=== PATIENT | male | born 1940 | race Caucasian/White ===

== ENCOUNTER 2019-02-22 17:40 | Inpatient (IN) | payer OTHER ==
[~2019-02-22] VITALS: Ht 188 cm; Wt 105.7 kg
[~2019-02-22 17:40] MED LIST: LOPRESSOR100 M1 PO; PRILOSEC10 MG PO; QUINAPRIL HCL40 MG PO; SINGULAIR 10 MG10 M1 PO; TRAMADOL 50 MG50 MG PO; VYTORIN 10-801 EACH PO
[2019-02-22 17:41] VITALS: BP 170/79
[2019-02-22 18:06] LABS: HEMATOCRIT 41.8 % (42.0-52.0); MCH 30.1 pg (26.0-34.0); MCHC 33.5 g/dL (28.0-37.0); MCV 89.8 fL (80.0-100.0); MPV 9.2 fl. (7.2-11.1); NUCLEATED RBCS 0 /100WBC; PLATELET COUNT* 146 thou/uL (150-400); RBC 4.66 mil/uL (4.50-6.00); RDW-CV 14.5 % (10.5-14.5); WBC 4.7 thou/uL (4.0-11.0)
[2019-02-22 18:20] LABS: ANION GAP 8 mmol/L (7-16); BUN 14 mg/dL (7-18); CALCIUM 8.8 mg/dL (8.5-10.1); CHLORIDE 106 mmol/L (98-107); CO2 26 mmol/L (21-32); CREATININE 1.2 mg/dL (0.6-1.3); GLUCOSE 99 mg/dL (70-99); POTASSIUM 3.8 mmol/L (3.5-5.1); SODIUM 140 mmol/L (136-145)
[2019-02-22 18:24] LABS: APTT 27.8 Seconds (25.0-31.3); PROTIME 10.2 Seconds (9.20-11.50)
[2019-02-22 18:27] LABS: ABSOLUTE EOSINOPHILS 0.3 thou/uL (0.0-0.7); ABSOLUTE LYMPHOCYTES 1.5 thou/uL (0.8-5.3); ABSOLUTE MONOCYTES 0.5 thou/uL (0.0-1.2); ABSOLUTE NEUTROPHILS 2.4 thou/uL (1.6-8.1); ATYPICAL LYMPHS 2 %; PLATELET ESTIMATE ADEQUATE
[2019-02-22 18:33] LABS: ALBUMIN 3.3 g/dL (3.4-5.0); ALKALINE PHOSPHATASE 85 U/L (46-116); CK-MB MASS 0.5 ng/mL (<0.5-3.6); LIPASE 111 U/L (73-393); MAGNESIUM 1.9 mg/dL (1.8-2.4); NT-PRO BRAIN NAT PEPTIDE 744 pg/mL (<300); SGOT 18 U/L (15-37); SGPT 26 U/L (30-65); TOTAL BILIRUBIN 0.3 mg/dL (<0.1-1.0); TOTAL PROTEIN 6.9 g/dL (6.4-8.2); TROPONIN-I LEVEL <0.06 ng/mL (<0.06)
[2019-02-22 19:07] VITALS: BP 191/84
[2019-02-22 21:19] VITALS: BP 191/84
[2019-02-22 21:45] VITALS: BP 170/64
[2019-02-23] VITALS (29 sets, daily range): BP systolic 100–212; BP diastolic 39–120
--- NOTE | 2019-02-23 06:56 | H ---
[address] [address] HISTORY AND PHYSICAL Name: ALEJANDRO FISHER SR Room: [place] [address] ADM IN M.R.#: [id number] Admission: 02/22/19 Attend Phys: Riccardo Barney Discharge: Date of : 44 Report #: [id number] THIS REPORT FOR: //name// CC: Susan Marmolejo DATE OF SERVICE: 02/22/2019 CHIEF COMPLAINT: Chest pain and shortness of breath. HISTORY OF PRESENT ILLNESS: The patient is a 78-year-old pleasant gentleman who has past history of CAD status post PCI and CABG in the past, who presented to us here for chest pain. The patient said he has been getting short of breath and having chest pain, pressure with exertion for the last month or so. It has been getting worse. He has seen his primary care physician. He did try to rest and does relieve it. Today he was carrying groceries and the pain was severe enough that he was getting diaphoretic and short of breath. He had some radiation to the left arm. EMS was called and he was given aspirin and nitro and by the time he got here, his symptoms have resolved. He does not have any chest pain currently. His blood pressure was elevated when he came in. PAST MEDICAL HISTORY: Includes CAD status post PCI and CABG. He also had carotid stenosis, status post CEA. He believes he has PVD and not sure if he had an angiogram, but he was told that they had to replace arteries in his legs. He might have a fem-pop, unsure as it has been years ago. He also has a history of hypertension, hyperlipidemia. Denies history of diabetes, COPD. He must quit smoking. FAMILY HISTORY: Hypertension, diabetes, CAD. SOCIAL HISTORY: The patient is and lives with the . Used to smoke, but quit in 1982. Also, used to drink, but quit years ago. No illicit drug use. ALLERGIES: MIDAZOLAM, BUPIVACAINE AND LIDOCAINE. MEDICATIONS: Include Vytorin 1080 daily, tramadol 50 mg p.r.n., metoprolol one every day, quinapril 40 mg daily. REVIEW OF SYSTEMS: The patient denies any fever, chills, cough or cold symptoms. Only complaint is that shortness of breath on exertion and also chest pain, especially on exertion. Denies any palpitation. No nausea, no vomiting or diarrhea. No burning, urgency and does have chronic back pain. No tingling or weakness. Denies any rash. A 12-point review of system unremarkable [place] [address] HISTORY AND PHYSICAL Name: ALEJANDRO FISHER SR Room: [address] IN M.R.#: [id number] Admission: 02/22/19 Attend Phys: Riccardo Barney Discharge: Date of : 42 Report #: [id number] PHYSICAL EXAMINATION: VITAL SIGNS: Temperature 36.2, heart rate 66, respiratory rate 16, blood pressure 191/84, 100% on 2 liters nasal cannula. GENERAL: The patient is alert. He is oriented x 3, not in acute respiratory distress. HEENT: Normocephalic, atraumatic. Nares patent. Clear pharynx. NECK: Supple. No lymphadenopathy. CARDIOVASCULAR: Normal rate, regular rhythm. No murmurs noted. RESPIRATORY: Clear to auscultation bilaterally, no wheeze, no crackles. GASTROINTESTINAL: Abdomen is soft, nontender, nondistended, positive bowel sounds. No organomegaly. GENITOURINARY: Deferred. MUSCULOSKELETAL: Fair strength. LABORATORY DATA: EKG showed sinus rhythm with incomplete heart block and PAC. IMAGING STUDIES: Chest x-ray done showed pulmonary venous congestion, findings suggestive of marked interstitial edema versus typical infection and chronic scarring. CT scan showed no filling defects in the main pulmonary artery, had a proximal branch that shows PE. There is peribronchial thickening, pleural parenchymal scarring in the left lung base. IMPRESSION: 1. The patient is a 78-year-old gentleman who presented to us here for shortness of breath on exertion and chest pain with exertion, likely secondary to stable angina. 2. Known hypertension 3. Known hyperlipidemia 4. History of coronary artery disease status post stent placement and open heart surgery, 5. Known carotid stenosis status post CEA. 6. Chronic back pain PLAN: The patient will be admitted. Cardiology will be consulted. Defer to them if he is going to have a cardiac catheterization tomorrow. We will keep him n.p.o. post-midnight. The patient requesting sleeping pills. We will start him on Ambien also given him Eola for chronic back pain. Discussed with the patient regarding code status. He wants to be tried to be resuscitated. He is full code, right now, but does not want to be prolonged resuscitation. His labs drawn and CBC is unremarkable. Coags is unremarkable. Chemistry is [address] [address] HISTORY AND PHYSICAL Name: ALEJANDRO FISHER Room: [address] IN M.R.#: [id number] Admission: 02/22/19 Attend Phys: Riccardo Barney Discharge: Date of : 44 Report #: [id number] unremarkable. Troponin is 0.06. BNP 744. Albumin is 2.3. We will also do an echocardiogram for this patient. <ELECTRONICALLY SIGNED> By: Susan Moncada MD 02/23/19 0656 [id number] Moncada MD /[facility]
--- NOTE | 2019-02-23 07:49 | NUR ---
PT CARE ASSUMED AT 1930. SAT MAINTAINED IN RA. CALL LIGHT WITHIN REACH AND BED IN LOW POSITION. C/O PAIN, MEDICATION GIVEN PER EMAR. ALERT AND ORIENTED X4. HOURLY ROUNDING DONE FOR PT SAFETY.
--- NOTE | 2019-02-23 08:00 | NUR ---
PT RECIEVED FROM ED. ALERT AND ORIENTED X4. CALL LIGHT WITHIN REACH AND BED IN LOW POSITION. PT IN RA. C/O PAIN, MEDICATION GIVEN PER EMAR. HOURLY ROUNDING DONE FOR PT SAFETY.
--- NOTE | 2019-02-23 08:39 | NUR ---
ASSUMED CARE OF PT AT 0730. PT RESTING IN BED. PT NPO AT THIS TIME FOR CARDIOLOGY CONSULT. PT DENIES ANY PAIN OR SHORTNESS OF BREATH AT THIS TIME. PT DENIES ANY CHEST PAIN. PT TRACING SR ON THE CERTIFIED PATHOLOGY ASSISTANT. +1 EDEMA NOTED TO BILATERAL LE'S. PT ON RA SAT 95%. PT UP AD KEENAN IN ROOM. PT GOAL FOR TODAY IS REMAIN FREE FROM CHEST PAIN, CARDIOLOGY CONSULT AND INCREASE ACTIVITY. AM ASSESSMENT CHARTED. MEDICATIONS PER NOV. PT REPOSITIONS SELF. HOURLY ROUNDING OBSERVED. BED IN LOW POSITION. CALL LIGHT WITHIN REACH. WILL CONTINUE PLAN OF CARE.
[2019-02-23 11:28] LABS: CHOLESTEROL 190 mg/dL (<200); HDL CHOLESTEROL 35 mg/dL (>40); LDL CHOLESTEROL 143 mg/dL (<100); TC:HDL 5.4 Ratio (Not establshd); TRIGLYCERIDE 62 mg/dL (<150); VLDL 12 mg/dL (<40)
[2019-02-23 11:33] LABS: SERUM ASSESSMENT Clear
--- NOTE | 2019-02-23 14:30 | NUR ---
PT TO TRANSFER TO ICU BED 1 POST CATH. REPORT CALLED TO DANNA SEGUNDO. BELONGINGS TRANSFERRED TO BED 1.
[2019-02-23 15:31] LABS: CK-MB MASS 0.5 ng/mL (<0.5-3.6); TROPONIN-I LEVEL 0.11 ng/mL (<0.06)
--- NOTE | 2019-02-23 17:30 | NUR ---
Right groin hematoma noted shortly after arterial sheath pull. Pressure held for 20 minutes. Groin has small quarter sized hematoma, no brusing noted at this time. Clean and dry dressing applied. Pt educated on post sheath pull instructions.
--- NOTE | 2019-02-23 19:00 | NUR ---
PATIENT RECEIVED FROM CATH AT 1400, VSS, SHEATH AT RT GROIN. SITE INTACT AND DRY. PAIN MGMT PER EMAR. TOLERATED HEART HEALTHY DIET.
[2019-02-24] VITALS (7 sets, daily range): BP systolic 130–163; BP diastolic 53–100
[2019-02-24 04:27] LABS: HEMATOCRIT 39.2 % (42.0-52.0); HEMOGLOBIN 13.4 gm/dL (14.0-18.0); MCH 30.7 pg (26.0-34.0); MCHC 34.2 g/dL (28.0-37.0); MCV 89.8 fL (80.0-100.0); MPV 9.5 fl. (7.2-11.1); RBC 4.37 mil/uL (4.50-6.00); RDW-CV 14.9 % (10.5-14.5); WBC 7.8 thou/uL (4.0-11.0)
[2019-02-24 05:09] LABS: ALKALINE PHOSPHATASE 78 U/L (46-116); ANION GAP 7 mmol/L (7-16); BUN 15 mg/dL (7-18); CALCIUM 8.8 mg/dL (8.5-10.1); CHLORIDE 103 mmol/L (98-107); CHOLESTEROL 180 mg/dL (<200); CK-MB MASS 12.2 ng/mL (<0.5-3.6); CO2 28 mmol/L (21-32); CREATININE 1.3 mg/dL (0.6-1.3); GLUCOSE 110 mg/dL (70-99); HDL CHOLESTEROL 32 mg/dL (>40); LDL CHOLESTEROL 126 mg/dL (<100); POTASSIUM 4.1 mmol/L (3.5-5.1); SGOT 28 U/L (15-37); SGPT 23 U/L (30-65); SODIUM 138 mmol/L (136-145); TC:HDL 5.6 Ratio (Not establshd); TOTAL BILIRUBIN 0.6 mg/dL (<0.1-1.0); TOTAL PROTEIN 6.6 g/dL (6.4-8.2); TRIGLYCERIDE 111 mg/dL (<150); VLDL 22 mg/dL (<40)
[2019-02-24 05:11] LABS: SERUM ASSESSMENT Clear
[2019-02-24 05:14] LABS: TROPONIN-I LEVEL 2.34 ng/mL (<0.06)
--- NOTE | 2019-02-24 06:26 | NUR ---
ASSESSMENT CHARTED. PATIENT UP AD KEENAN AT 2215 PER ORDERS POST CATH. PATIENT'S MAIN COMPLAINT WAS NAUSEA AND BACK PAIN. ADMINISTERED ZOFRAN Q4H TO KEEP NAUSEA MINIMAL. PATIENT VOMITED ONCE AT START OF SHIFT. CONTENTS BROWN AND THIN. ORAL MEDICATIONS HELD AT START OF SHIFT FOR THIS REASON. PATIENT SLEPT COMFORTABLY DURING MAJORITY OF SHIFT. PATIENT'S GRANDDAUGHTER CALLED TWICE FOR STATUS UPDATE.
[2019-02-24] MEDS ORDERED: LIPITOR 20 MG T20 M1 PO (07:39)
[2019-02-24] MEDS ORDERED: CLOPIDOGREL75 MG PO (07:39)
[2019-02-24] MEDS ORDERED: ASPIR 8181 MG PO (07:39)
--- NOTE | 2019-02-24 10:37 | CARD ---
[facility] [address] [place] [address] CARDIAC CATH REPORT Name: ALEJANDRO FISHER SR Room: [address] IN [facility]#: [id number] Admission: 02/22/19 Attend Phys: Riccardo Barney Discharge: Date of : 42 Report #: [id number] THIS REPORT FOR: //name// APPROVED REPORT Study performed: 02/23/2019 11:24:25 Patient Details Patient Status: In-Patient Room #: The patient is a 78 year-old male Event Personnel Alexsandra Yousif RN, Lily Mcconnell, Fabián ShiubRizwana Jin Street Contractor Procedures Performed Art Access - R femoral artery* Coronaries Angiography and Bypass Grafts 408358 CORCA Supravalvular Aortography Injection [id number] ISVA ELSIE Place w/wo Plasty Single CIRC [id number] , IVUS Indication Non-STEMI , Dyspnea, Chest pain Risk Factors Hypercholesterolemia, Coronary Artery DiseaseHypertension Previous Procedures/Diagnoses Previous CABGPrevious PCI Procedure Narrative The patient was brought urgently to the Cardiac Catheterization Laboratory and was prepped and draped in a sterile manner. The right femoral was infiltrated with subcutaneous anesthesia. A 6fr Ultimum Sheath sheath was inserted into the right femoral artery. Coronary angiography was performed using coronary diagnostic catheters. The right coronary system was accessed and visualized with a Diagnostic catheter. The left coronary system was accessed and visualized with a Diagnostic catheter. The patient tolerated the procedure well and there were no complications associated with the procedure. Sheath sutured into place to be removed later. Intraoperative Conscious Sedation Fentanyl 200 mcg No sedation given. [place] [address] CARDIAC CATH REPORT Name: ALEJANDRO FISHER SR Room: [address]#: [id number] Admission: 02/22/19 Attend Phys: Riccardo Barney Discharge: Date of : 42 Report #: [id number] Dose: 291740 mGy Contrast Type and Amount: Visipaque 230 ml Coronary Angiography The patient's coronary anatomy is left dominant. Diagnostic Cath Left Main There is a severe occlusion in the left main artery, 90% supplying a dominant left circumflex artery. LAD This vessel is occluded at the ostium. There is a FISHER graft with an end-to-side anastomosis to the mid LAD segment. There is a previously placed stent just after the anastomotic site with a severe restenosis, 70%. There is filling of the mid and distal LAD, diagonal artery and collateral filling of OM1 from the FISHER graft. Circumflex Dominant vessel with a severe ostial stenosis, 90%. OM1 Occluded at the ostium. The SVG to this vessel is occluded at the ostium. This vessel fills via collateral flow from the LAD. OM2 This is a patent vessel, with no flow-limiting lesions. Right Coronary This is a small, nondominant vessel with a total occlusion. Left Ventriculography An aortic root injection was performed, there is no evidence for any patent bypasses. Hemodynamics The aortic pressure is 194/91 mmHg with a mean of 128 mmHg. PCI Technique Lesion Anticoagulation was achieved with Angiomax. Patient was preloaded with Plavix PO 600 mg. Percutaneous coronary intervention was performed on the left main/ostial left circumflex artery segment. The lesion stenosis prior to intervention was 95% with CAMMIE 3 flow. A 6FR XB 3.5 100CM Guide Catheter was used to engage the ostium. A IG: BMW 190cm Interventional Guidewire was used to cross the lesion. BALLOON DILATION A Balloon catheter Trek RX 2.5 X 15 was inserted and inflated up to 14.00atm for 10seconds. Additional Inflation: 14.00atm for 8seconds. Additional Inflation: 18.00atm for 11seconds. [place] [address] CARDIAC CATH REPORT Name: ALEJANDRO FISHER SR Room: [address] IN [facility]#: [id number] Admission: 02/22/19 Attend Phys: Riccadro Barney Discharge: Date of : 42 Report #: [id number] A drug-eluting stent Ribera RX Stent 3.5X18mm was inserted and inflated up to 14.00atm for 16seconds. Additional Inflation: 14.00atm for 5seconds. At the distal edge of the 3.5 mm stent, there appears to be a focal dissection- this was covered with a Stent- Xience Preeti 3.25 x8 inflated up to 12 michael for 5 secs. Additional Inflation: 8 michael for 5 secs. Additional Inflation: 14 michael for 9 sec. POST STENT DEPLOYMENT BALLOON DILATION A Balloon catheter Iron Gaming RX3.50x15 was inserted and inflated up to 12.00atm for 5seconds. Additional Inflation: 8.00atm for 5seconds. Final angiography reveals 0 % stenosis with CAMMIE 3 flow. Conclusion 1. Successful insertion of a drug-eluting stent into the left main/ostial dominant left circumflex artery. 2. There is a patent FISHER graft to the mid LAD, filling the mid and distal LAD segments, diagonal artery and collateral flow to OM1. 3. At or just after the distal anastomosis from the FISHER to the LAD, there is a severe restenotic lesion. Recommend medical therapy. 4. Recommend dual antiplatelet therapy and aggressive risk factor management. Medications Administered Clopidogrel <ELECTRONICALLY SIGNED> By: Nav Wagoner MD 02/24/19 1037 1037 1037Nav Wagoner MD /INF
--- NOTE | 2019-02-24 12:21 | CON ---
[facility] [address] [place] [address] CONSULTATION Name: ALEJANDRO FISHER SR Room: [address] IN .R.#: [id number] Admission: 02/22/19 Attend Phys: Riccardo Barney Discharge: Date of : 42 Report #: [id number] THIS REPORT FOR: //name// CC: Susan Marmolejo MD DATE OF SERVICE: 02/23/2019 INDICATION: Non-ST elevation myocardial infarction. HISTORY OF PRESENT ILLNESS: The patient is a very pleasant 78-year-old gentleman with history of 3-vessel coronary artery bypass grafting reported in 1985. He reports percutaneous coronary intervention in 2001, complicated by hematoma. He has been relatively stable until the last several months when he has had exertional chest discomfort consistent with typical angina. Last night, he had sudden onset midsternal chest discomfort while at home. EMS was summoned to the house where he received sublingual nitroglycerin and IV fluids. He had relief in pain at that time. EKG in the Emergency Room shows sinus rhythm with diffuse ST segment depression consistent with ischemia. The patient has had mildly elevated troponins with the most current troponin being 0.37. At the time of interview, he is pain free. He did describe his pain as worse with activity, associated with shortness of breath and improved with nitroglycerin. PAST MEDICAL HISTORY: 1. Coronary artery disease. 2. Carotid vascular disease with previous carotid endarterectomy. 3. Peripheral vascular disease. 4. Hypertension. 5. Hyperlipidemia. 6. Bladder cancer. FAMILY HISTORY: Positive for hypertension, diabetes and coronary artery disease. SOCIAL HISTORY: The patient is . He quit smoking in 1982. He does not drink alcohol. ALLERGIES: MIDAZOLAM, BUPIVACAINE AND LIDOCAINE. HOME MEDICATIONS: Vytorin 10/80 one tablet daily, tramadol 50 mg p.r.n., metoprolol 100 mg daily, quinapril 40 mg daily. REVIEW OF SYSTEMS: Positive for generalized weakness, cough productive of clear sputum, occasional palpitations, chest discomfort as outlined above, dyspnea on exertion, history of bladder cancer remotely, seasonal allergies, [place] [address] CONSULTATION Name: CORRIEYONIALEJANDRO SR Room: [address]#: [id number] Admission: 02/22/19 Attend Phys: Riccardo Barney Discharge: Date of : 42 Report #: [id number] allergies as outlined above, arthritis. He wears glasses and dentures. Otherwise, 14-point review of systems was unremarkable. PHYSICAL EXAMINATION: VITAL SIGNS: Stable. Blood pressure 169/79, pulse 69 and regular. GENERAL: This is a pleasant gentleman who is in no distress. Mood and affect appropriate. HEENT: Extraocular muscles intact. Mucous membranes moist. NECK: Shows no jugular venous distention. I do not appreciate carotid bruit. CHEST: Reveals clear lung granado without wheezes or rales. CARDIOVASCULAR: Reveals a regular rhythm with grade 2/6 systolic ejection murmur. I do not appreciate gallop. ABDOMEN: Reveals normal bowel sounds. The abdomen is soft, nontender. EXTREMITIES: Shows no edema. Peripheral pulses palpable. SKIN: Dry. LABORATORY DATA: A 12-lead EKG shows sinus rhythm with ST segment depression in anterolateral leads. Labs are reviewed. Sodium 140, potassium 3.8, chloride 106, bicarbonate 26, BUN 14, creatinine 1.2, serum glucose 99. LFTs within normal limits. Albumin 3.3, total protein 6.9. Troponin initially less than 0.06, subsequently 0.25 and currently 0.37. NT-proBNP is 744. The lipid profile is pending. Coags within normal limits. Hemoglobin 14.0, hematocrit 41.8, platelet count 146. Chest x-ray suggests pulmonary vascular congestion. IMPRESSION AND RECOMMENDATIONS: 1. Non-ST elevation myocardial infarction. The patient was placed on heparin drip and nitro paste. PLAN: 1. Cardiac catheterization today to further define anatomy and possible intervention. Continue daily aspirin. 2. Possible acute on chronic heart failure. We will further define left ventricular function with catheterization. At this point, the patient is being gently hydrated prior to catheterization. 3. Cardiac murmur consistent with aortic valvular [place] [address] CONSULTATION Name: ALEJANDRO FISHER SR Room: [address] IN [facility]#: [id number] Admission: 02/22/19 Attend Phys: Riccardo Barney Discharge: Date of : 42 Report #: [id number] We will obtain echocardiogram either during hospitalization or as an outpatient. 4. Hyperlipidemia. The patient is on Vytorin . We will repeat fasting lipid profile at this time. 5. Hypertension. Blood pressure moderately elevated at this time. We will make adjustments to antihypertensive regimen while in hospital if required. 6. Peripheral vascular disease, presently stable. He is not complaining of claudication. 7. History of carotid vascular disease. Last workup was remotely. He is not having any symptoms to suggest transient ischemic attack or stroke. He should probably have a repeat carotid Doppler as an outpatient. <ELECTRONICALLY SIGNED> By: Trav Light MD, FACC 02/24/19 1221 1025 [id number] Light MD, FACC /nt
--- NOTE | 2019-02-24 13:34 | NUR ---
PATIENT ALERT AND ORIENTED X4. VSS. COMPLAINT OF HEADACHE, MANAGED BY HYDROCODONE. TOLERATED DIET. UO 200 MLS. DISCHARGE EDUCATION PROVIDED.
--- NOTE | 2019-02-24 16:53 | 2DMMODE ---
[place] [address] 2 D/M-MODE ECHOCARDIOGRAM Name: ALEJANDRO FISHER SR Room: [address]#: [id number] Admission: 02/22/19 Attend Phys: Susan Moncada Discharge: 02/24/19 Date of : 44 Date of Service: 02/24/19 1653 Report #: [id number] THIS REPORT FOR: //name// APPROVED REPORT Study performed: 02/24/2019 13:55:40 EXAM: Comprehensive 2D, Doppler, and color-flow Echocardiogram Patient Location: In-Patient Room #: 001 Status: routine BSA: 2.32 HR: 64 bpm BP: 130/69 mmHg Rhythm: NSR Other Information Study Quality: Good Indications Acute [place] 2D Dimensions IVSd: 12.10 (7-11mm) LVOT Diam: 21.52 (18-24mm) LVDd: 49.27 mm PWd: 11.04 (7-11mm) Ascending Ao: 30.65 (22-36mm) LVDs: 32.82 (25-40mm) Aortic Root: 32.71 mm Volumes Left Atrial Volume (Systole) LA ESV Index: 38.00 mL/m2 Aortic Valve AoV Peak Dinh.: 2.38 m/s AO Peak Gr.: 22.72 mmHg LVOT Max P.33 mmHg AO Mean Gr.: 12.93 mmHg LVOT Mean P.56 mmHg LVOT Max V: 0.91 m/s AO V2 VTI: 50.88 cm LVOT Mean V: 0.57 m/s NITESH (VTI): 1.44 cm2 LVOT V1 VTI: 20.12 cm AI Cedar: 2.68 m/s2 AI PHT: 365.00 ms Mitral Valve E/A Ratio: 1.83 [place] [address] 2 D/M-MODE ECHOCARDIOGRAM Name: ALEJANDRO FISHER SR Room: [address]#: [id number] Admission: 02/22/19 Attend Phys: Susan Moncada Discharge: 02/24/19 Date of : 44 Date of Service: 02/24/19 1653 Report #: [id number] MV Decel. Time: 174.04 ms MV E Max Dinh.: 1.03 m/s MV PHT: 50.47 ms MVA (PHT): 4.36 cm2 TDI E/Lateral E': 9.36 E/Medial E': 7.92 Medial E' Dinh.: 0.13 m/s Lateral E' Dinh.: 0.11 m/s Pulmonary Valve PV Peak Dinh.: 0.88 m/s PV Peak Gr.: 3.08 mmHg Tricuspid Valve RAP Estimate: 5.00 mmHg TR Peak Gr.: 30.79 mmHg RVSP: 35.00 mmHg PA Pressure: 35.00 mmHg Left Ventricle The left ventricle is normal size. There is normal LV segmental wall motion. There is normal left ventricular wall thickness. Left ventricular systolic function is normal. LVEF is 55-60%. Transmitral Doppler flow pattern suggests restrictive physiology. Right Ventricle Right ventricle is dilated. The right ventricular systolic function is normal. Atria Left atrium is mildly dilated. Right atrium is dilated. Aortic Valve Moderate aortic valve sclerosis. Moderate aortic regurgitation. Moderate aortic stenosis. Mitral Valve There is mitral annular calcification. Mild mitral regurgitation. No evidence of mitral valve stenosis. Tricuspid Valve The tricuspid valve is normal in structure. Mild tricuspid regurgitation. Mild pulmonary hypertension. Pulmonic Valve The pulmonary valve is normal in structure. There is no pulmonic [place] [address] 2 D/M-MODE ECHOCARDIOGRAM Name: ALEJANDRO FISHER Andrew VICENTE Room: [address]#: [id number] Admission: 02/22/19 Attend Phys: Susan Moncada Discharge: 02/24/19 Date of : 44 Date of Service: 02/24/19 1653 Report #: [id number] Great Vessels The aortic root is normal in size. IVC is not well visualized. Pericardium There is no pericardial effusion. <Conclusion> The left ventricle is normal size. There is normal left ventricular wall thickness. Left ventricular systolic function is normal. LVEF is 55-60%. Transmitral Doppler flow pattern suggests restrictive physiology. Right ventricle is dilated. Left atrium is mildly dilated. Right atrium is dilated. Moderate aortic valve sclerosis. Moderate aortic stenosis. Mild mitral regurgitation. Mild tricuspid regurgitation. Mild pulmonary hypertension. <ELECTRONICALLY SIGNED> By: Trav Light MD, FACC 02/24/191652 52 52 Trav Light MD, FACC /INF
--- NOTE | 2019-02-26 10:31 | EKG ---
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 : 1940 Requested By: Nav Wagoner Order Number: [id number] Reading MD: Coleman Kinney Measurements Intervals [place] Rate: 73 P: 51 OK: 164 QRS: 20 QRSD: 95 T: -44 QT: 388 QTc: 428 Interpretive Statements Sinus rhythm Probable left ventricular hypertrophy Borderline T abnormalities, diffuse leads No previous ECG available for comparison Electronically Signed On 02-26-2019 10:31:44 CDT by Coleman Kinney [email or web address] <ELECTRONICALLY SIGNED> By: Coleman Kinney MD, [facility] 02/26/19 1031 0259 0259 Coleman Kinney MD, [facility] /EPI
--- NOTE | 2019-02-26 10:31 | EKG ---
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: : 1940 Requested By: Nav Wagoner Order Number: [id number] Reading MD: Coleman Kinney Measurements Intervals [place] Rate: 68 P: 60 ME: 169 QRS: 24 QRSD: 95 T: -9 QT: 408 QTc: 434 Interpretive Statements Sinus rhythm Atrial premature complex Borderline T abnormalities, diffuse leads Baseline wander in lead(s) III,aVL No previous ECG available for comparison Electronically Signed On 02-26-2019 10:31:23 CDT by Coleman Kinney [email or web address] <ELECTRONICALLY SIGNED> By: Coleman Kinney MD, [facility] 02/26/19 1031 1431 1431 Coleman Kinney MD, [facility] /EPI
--- NOTE | 2019-02-26 12:48 | EKG ---
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: Layla CARTWRIGHT : 1940 Requested By: Jose Alfredo Bowers Order Number: [id number] MD: Tato Menchaca Measurements Intervals [place] Rate: 87 P: 35 [place]: 158 QRS: 27 QRSD: 115 T: 21 QT: 390 QTc: 470 Interpretive Statements Sinus rhythm Atrial premature complex Incomplete right bundle branch block Probable LVH with secondary repol abnrm Baseline wander in lead(s) I,III,aVL No previous ECG available for comparison Electronically Signed On 02-26-2019 12:48:13 CDT by Tato Menchaca [email or web address] <ELECTRONICALLY SIGNED> By: Tato Menchaca MD, FAC 02/26/19 1248 1741 1741 Tato Menchaca MD, FAC /EPI
== END 2019-02-24 15:24 | disposition home or self-care (01) | DRG 246 ==
LOC: M.ERS 17:40 → M.TBA-ER 18:35 → M.2W 18:35 → M.ICU 02-23 14:14
PROVIDERS: Family Medicine; Internal Medicine Cardiovascular Disease; ADMIT Internal Medicine
DX: I21.4 Non-ST elevation (NSTEMI) myocardial infarction (principal); I50.33 Acute on chronic diastolic (congestive) heart failure; T82.855A Stenosis of coronary artery stent, initial encounter; I25.119 Atherosclerotic heart disease of native coronary artery with unspecified angina pectoris; I73.9 Peripheral vascular disease, unspecified; E78.5 Hyperlipidemia, unspecified; G89.29 Other chronic pain; I08.0 Rheumatic disorders of both mitral and aortic valves; Y83.8 Other surgical procedures as the cause of abnormal reaction of the patient, or of later complication, without mention of misadventure at the time of the procedure; Z79.899 Other long term (current) drug therapy; Z88.8 Allergy status to other drugs, medicaments and biological substances; Z95.1 Presence of aortocoronary bypass graft; Z95.5 Presence of coronary angioplasty implant and graft; Z85.51 Personal history of malignant neoplasm of bladder; Z83.3 Family history of diabetes mellitus; Z82.49 Family history of ischemic heart disease and other diseases of the circulatory system; Z79.84 Long term (current) use of oral hypoglycemic drugs; Z87.891 Personal history of nicotine dependence; Y92.89 Other specified places as the place of occurrence of the external cause

== ENCOUNTER 2020-04-18 19:59 | Inpatient (IN) | payer OTHER ==
[~2020-04-18] VITALS: Ht 188 cm; Wt 90.4 kg
[~2020-04-18 19:59] MED LIST changes: +ASPIR 8181 MG PO; +CLOPIDOGREL75 MG PO; +LIPITOR 20 MG T20 M1 PO
[2020-04-18 20:06] VITALS: BP 205/74
[2020-04-18 20:26] LABS: ABSOLUTE EOSINOPHILS 0.4 thou/uL (0.0-0.7); ABSOLUTE LYMPHOCYTES 1.4 thou/uL (0.8-5.3); ABSOLUTE MONOCYTES 0.5 thou/uL (0.0-1.2); BASOPHILS 0.9 %; EOSINOPHILS 7.3 %; HEMATOCRIT 42.6 % (42.0-52.0); HEMOGLOBIN 14.5 gm/dL (14.0-18.0); LYMPHOCYTES 25.9 %; MCH 31.1 pg (26.0-34.0); MCV 91.3 fL (80.0-100.0); MONOCYTES 10.2 %; MPV 9.7 fl. (7.2-11.1); NUCLEATED RBCS 0 /100WBC; PLATELET COUNT* 158 thou/uL (150-400); POLYS 55.7 %; RBC 4.67 mil/uL (4.50-6.00); RDW-CV 15.5 % (10.5-14.5); WBC 5.3 thou/uL (4.0-11.0)
[2020-04-18 20:32] LABS: CALCIUM 8.8 mg/dL (8.5-10.1); CREATININE 1.6 mg/dL (0.6-1.3); POTASSIUM 4.4 mmol/L (3.5-5.1)
[2020-04-18 20:34] LABS: PROTIME 10.3 Seconds (9.20-11.50)
[2020-04-18 20:43] LABS: ALBUMIN 3.4 g/dL (3.4-5.0); MAGNESIUM 2.1 mg/dL (1.8-2.4); TOTAL BILIRUBIN 0.3 mg/dL (<0.1-1.0); TOTAL PROTEIN 7.2 g/dL (6.4-8.2)
[2020-04-18 21:39] LABS: URINE BILIRUBIN NEGATIVE (Negative); URINE BLOOD NEGATIVE (Negative); URINE CLARITY CLEAR; URINE COLOR YELLOW; URINE GLUCOSE-RANDOM NEGATIVE (Negative); URINE KETONES NEGATIVE (Negative); URINE LEUKOCYTES-REFLEX NEGATIVE (Negative); URINE NITRITE-REFLEX NEGATIVE (Negative); URINE PROTEIN NEGATIVE (Negative); URINE UROBILINOGEN 0.2 E.U./dl (0.2-1.0)
[2020-04-19] VITALS (7 sets, daily range): BP systolic 140–158; BP diastolic 49–63
[2020-04-19] MEDS ORDERED: LORCET 5-325 M1 EACH PO (03:22)
[2020-04-19] MEDS ORDERED: VISTARIL 25 MG25 M1 PO (03:25)
[2020-04-19] MEDS ORDERED: DULCOLAX STOOL100 M1 PO (03:36)
[2020-04-19] MEDS ORDERED: DULCOLAX5 MG PO (03:38)
--- NOTE | 2020-04-19 05:01 | NUR ---
RECEIVED PT FROM ED AT APPROX 0100 PER CART ACCOMPANIED BY ESPERANZA CLAY. PT IS AWAKE AND ORIENTED X4. PT IS TRACING SB ON THE CONVEYOR BELT OPERATOR. PT DENIES CHEST PAIN AND DISCOMFORT. PT IS ORIENTED ON THE ROOM SET UP AND ON THE USE OF CALL LIGHT. NO ACUTE CHANGES THROUGHOUT THIS SHIFT. CALL LIGHT WITHIN REACH. HOURLY ROUNDING DONE FOR PT SAFETY.
[2020-04-19 12:09] LABS: CHOLESTEROL 153 mg/dL (<200); HDL CHOLESTEROL 31 mg/dL (>40); LDL CHOLESTEROL 108 mg/dL (<100); SERUM ASSESSMENT Clear; TC:HDL 4.9 Ratio (Not establshd); TRIGLYCERIDE 73 mg/dL (<150); VLDL 15 mg/dL (<40)
--- NOTE | 2020-04-19 12:35 | EKG ---
[place] [address] ELECTROCARDIOGRAM REPORT Name: ALEJANDRO FISHER Room: [address]R.#: [id number] Admission: 04/18/20 Attend Phys: Josiah Linda, Discharge: Date of : 44 Date of Service: 04/18/202002 Report #: [id number] THIS REPORT FOR: //name// [facility] ED Test Date: 2020-04-18 Test Time: 20:03:56 Pat Name: ALEJANDRO FISHER Department: Room: [facility] Gender: M Dude Ranch Manager: NADIA : 1940 Requested By: Namita Padilla Order Number: [id number] MD: Nj Thacker Measurements Intervals [place] Rate: 78 P: 41 [place]: 167 QRS: 28 QRSD: 87 T: 1 QT: 393 QTc: 448 Interpretive Statements Sinus rhythm Supraventricular bigeminy Borderline repolarization abnormality Compared to ECG 02/24/2019 02:59:17 Atrial premature complex(es) now present T-wave abnormality no longer present Electronically Signed On 04-19-2020 12:35:20 CDT by Nj Thacker [email or web address] <ELECTRONICALLY SIGNED> By: Clay Thacker MD, FACC 04/19/20 1235 02 02 Clay Thacker MD, FAC /EPI
--- NOTE | 2020-04-19 17:16 | NUR ---
ASSUMED CARE OF PATIENT THIS MORNING FROM NIGHT NURSE. PT HAS CO OF PAIN WELL CONTROLLED WITH HER NORMAL HOME MEDICATIONS. HE WAS EDUCATED ON FALL SAFETY, POC AND DISEASE PROCESS. WILL CONTINUE TO MONITOR.
[2020-04-20] VITALS (18 sets, daily range): BP systolic 110–205; BP diastolic 45–120
--- NOTE | 2020-04-20 05:15 | NUR ---
ASSUMED PT CARE AT APPROX 1930. PT IS AWAKE AND ORIENTED X4. 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 PT DENIES CHEST PAIN/DISCOMFORT. PT IS REMINDED TO HAVE NOTHING BY MOUTH AFTER MIDNIGHT FOR A CARDIAC CATH IN AM. NO ACUTE CHANGES OVERNIGHT. CALL LIGHT WITHIN REACH. HOURLY ROUNDING DONE FOR PT SAFETY.
--- NOTE | 2020-04-20 08:10 | NUR ---
ASSUMED CARE OF PATIENT THIS MORNING FROM NIGHT NURSE. PT IS READY TO GO AND HAVE HIS CARDIAC CATH. WILL CONTINUE TO MONITOR.
--- NOTE | 2020-04-20 11:17 | EKG ---
[place] [address] ELECTROCARDIOGRAM REPORT Name: ALEJANDRO FISHER SR Room: [address]R.#: [id number] Admission: 04/18/20 Attend Phys: Josiah Linda, Discharge: Date of : 44 Date of Service: 04/19/20 0936 Report #: [id number] THIS REPORT FOR: //name// [facility] Test Date: 2020-04-19 Test Time: 09:36:40 Pat Name: ALEJANDRO FISHER Department: Room: [place] [address] Gender: M Basting Marker: YANIQUE : 1940 Requested By: Clay Thacker Order Number: [id number] Fox MD: Tato Menchaca Measurements Intervals [place] Rate: 55 P: 11 [place]: 179 QRS: 9 QRSD: 90 T: 2 QT: 422 QTc: 404 Interpretive Statements Sinus bradycardia Atrial premature complex Borderline T abnormalities, inferior leads Compared to ECG 04/18/2020 20:03:56 rate has slowed Electronically Signed On 04-20-2020 11:16:52 CDT by Tato Menchaca [email or web address] <ELECTRONICALLY SIGNED> By: Tato Menchaca MD, [facility] 04/20/20 1116 0936 0936 Tato Menchaca MD, [facility] /EPI
[2020-04-20 11:48] LABS: CALCIUM 8.7 mg/dL (8.5-10.1); CREATININE 1.5 mg/dL (0.6-1.3); POTASSIUM 4.7 mmol/L (3.5-5.1)
--- NOTE | 2020-04-20 14:21 | EKG ---
[place] [address] ELECTROCARDIOGRAM REPORT Name: ALEJANDRO FISHER SR Room: [address]R.#: [id number] Admission: 04/18/20 Attend Phys: Josiah Linda, Discharge: Date of : 44 Date of Service: 04/20/20 1309 Report #: [id number] THIS REPORT FOR: //name// [facility] Test Date: 2020-04-20 Test Time: 13:09:13 Pat Name: ALEJANDRO FISHER Department: Room: [place] [address] Gender: M Investigation Lieutenant: TEJA : 1940 Requested By: Tato Menchaca Order Number: [id number] Reading MD: Tato Menchaca Measurements Intervals [place] Rate: 80 P: 62 [place]: 174 QRS: 37 QRSD: 79 T: 49 QT: 390 QTc: 450 Interpretive Statements Sinus rhythm ST elevation, consider anterior injury Compared to ECG 04/19/2020 09:36:40 ST (T wave) deviation now present Sinus bradycardia no longer present Atrial premature complex(es) no longer present T-wave abnormality no longer present Electronically Signed On 04-20-2020 14:21:12 CDT by Tato Menchaca [email or web address] <ELECTRONICALLY SIGNED> By: Tato Menchaca MD, [facility] 04/20/20 1421 1309 1309 Tato Menchaca MD, [facility] /EPI
--- NOTE | 2020-04-20 16:33 | NUR ---
Pt lives at home with spouse. Pt has supportive children. Pt nurse explained that pt would most likely not be accepting or compliant of HH services. SW to follow to assist with safe dc planning if needs arise.
--- NOTE | 2020-04-20 17:09 | CARD ---
[address] [address] CARDIAC CATH REPORT Name: ALEJANDRO FISHER SR Room: [address] [place] Diana#: [id number] Admission: 04/18/20 Attend Phys: Josiah Linda MD Discharge: Date of : 44 Report #: [id number] THIS REPORT FOR: //name// cc: Aaron Marmolejo MD, Thomas MD ~ APPROVED REPORT Study performed: 04/20/2020 08:30:12 Patient Details Patient Status: In-Patient Room #: Count includes the [facility] The patient is a 79 year-old male Event Personnel Jose Escudero RTR Monitor, Alexsandra Yousif RN, Irina Sam RTR FloresubNikolai David Radiology Interventional Physician Procedures Performed Left Heart Cath Coronaries, Bypass Grafts [id number] LHCCORCABG ELSIE Place w/wo Plasty Single LAD [id number] Indication Abnormal ECG, Chest pain Risk Factors Arterial Hypertension, Hypercholesterolemia, Coronary Artery Disease Previous Procedures/Diagnoses Previous CABGPrevious PCI, Previous Vascular Surgery Admission/Lab Medications/Medications given during procedure Glycoprotein IllbIlla Inhibitors, Heparin Unfract., Fentanyl IV 25 mcg, Lidocaine Subcut 20 ml, Benadryl IV 50 mg, Solumedrol IV 100 mg, Heparin IV 7000 units, Aggrastat IV 10 mcg per min, Nitroglycerin IC 200 mcg, Plavix PO 600 mg Procedure Narrative The patient was brought electively to the Cardiac Catheterization Laboratory and was prepped and draped in a sterile manner. The left femoral was infiltrated with 1% Lidocaine subcutaneous anesthesia. A Lansford 6 FR sheath was inserted into the left femoral artery. Coronary angiography was performed using coronary diagnostic catheters. The right coronary system [place] [address] CARDIAC CATH REPORT Name: ALEJANDRO FISHER SR Room: [address]#: [id number] Admission: 04/18/20 Attend Phys: Josiah Linda MD Discharge: Date of : 44 Report #: [id number] a Diagnostic JR4 6 Fr catheter. The left coronary system was accessed and visualized with a Diagnostic JL4 6Fr catheter. The left ventricle was accessed and visualized with a Diagnostic Pigtail 6Fr catheter. Left ventricular/Aortic Valve gradient assessed via catheter pullback. Left ventriculogram was performed in QUIÑONES projection. The patient tolerated the procedure well and there were no complications associated with the procedure. There was no hematoma. The sheath was sutured in place at the end of the procedure. The plan was to manual remove the sheath in 4 hours and achieve hemostasis by applying pressure. Intraoperative Conscious Sedation Sedation start time: 925 Case end Time: 104 Fentanyl 125 mcg Fluoro Time: 13.2 minutes Dose: DAP 607545 cGycm2 1712.27 mGy Contrast Type and Amount: Visipaque 220 ml Coronary Angiography The patient's coronary anatomy is left dominant. [place] Artery Percent Stenosis Grafts (Complete if Previous CABG=Yes: Percent Stenosis) The FISHER graft was visualized with a 6 fr FISHER catheter. There was no stenosis noted in the FISHER graft but there was a stent in the mid lad after the insertion of the graft with a 90% distal edge restenosis, and 2 sequential 90% stenosis in the mid lad distal to the stent. The apical lad was a small vessel and had a 90% stenosis at the apex before the lad wrapped around the apex. The previous vein grafts had been demonstrated on previous catheterizations to be chronically occluded. Diagnostic Cath Left Main stent noted with a 30% ostial stenosis noted LAD 100% chronically occluded Circumflex Stent noted in the proximal circumflex extending from the left main artery and had 0% stenosis. There was a 70% stenosis in the mid circumflex artery after the takeoff of a marginal artery. Right Coronary chronically occluded proximally Left Ventriculography The left ventricular ejection fraction is estimated to be 45-50%. Left ventricular wall motion abnormalities are present. There is no mitral insufficiency. [place] [address] CARDIAC CATH REPORT Name: ALEJANDRO FISHER SR Room: [address] [place] M.Su#: [id number] Admission: 04/18/20 Attend Phys: Josiah Linda MD Discharge: Date of : 44 Report #: [id number] Hemodynamics The aortic pressure is 190/85 mmHg with a mean of 126 mmHg. The left ventricular pressure is 188/20 mmHg with a mean of mmHg. The left ventricular end diastolic pressure is 35 mmHg. There was no gradient across the aortic valve upon pullback. Pullback from the left ventricle to the aorta revealed no gradient across the aortic valve. PCI Technique Lesion Anticoagulation was achieved with Heparin. bolus of iv aggrastat given Percutaneous coronary intervention was performed on the mid left anterior descending artery segment. The lesion stenosis prior to intervention was 90% with CAMMIE 3 flow. A 6F IM 90CM Guide Catheter was used to engage the FISHER graft ostium. A IG: BMW 190cm Interventional Guidewire was used to cross the lesion. BALLOON DILATION A Balloon catheter 2/0 x 12 mm was inserted and inflated up to 8.00atm for 15seconds. Repeat angiography revealed the following post-dilatation results: 40% stenosis. Additional Inflation: 8.00atm for 12seconds. Additional Inflation: 8.00atm for 9seconds. STENT DEPLOYMENT A drug-eluting stent Shaq RX Stent 2.0X30mm was inserted and inflated up to 8.00atm for 13seconds. Repeat angiography revealed the following post-stent deployment results: 0% stenosis. Additional Inflation: 9.00atm for 14seconds. Additional Inflation: 13.00atm for 16seconds. A second stent was placed proximal to the first stent so that the was minimal overlap between the 2 stents and inflated to 12 michael for 10 seconds to cover the long area of significant stenosis in the lad. Final angiography reveals 0 % stenosis with CAMMIE 3 flow. Conclusion 1. 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 patent stent that started in the left main artery and extended into the proximal portion of the dominant circumflex artery with 0% restenosis. 3. previously demonstrated chronic occlusion of all previous SVG's 4. patent FISHER graft to the mid lad, with a stent in the mid lad after the insertion of the FISHER graft that had a 90% distal edge restenosis. 2 sequential 90% stenosis were noted in the mid lad [address] [address] CARDIAC CATH REPORT Name: ALEJANDRO FISHER SR Room: [address] [place] TrianaLencho#: [id number] Admission: 04/18/20 Attend Phys: Josiah Linda MD Discharge: Date of : 44 Report #: [id number] beyond the stent. 5. LVEF 45-50% 6. 2 drug eluting stents were successful delivered to the mid lad through the FISHER graft with 0% residual stenosis Recommendations Cardiac Rehabilitation Referral Aggressive Medical Therapy Medications Administered Clopidogrel <ELECTRONICALLY SIGNED> By: Tato Menchaca MD, FACC 04/20/20 1709 08 08Tato Menchaca MD, FACC /INF
[2020-04-20 22:16] LABS: URINE BILIRUBIN NEGATIVE (Negative); URINE BLOOD 3+ (Negative); URINE CLARITY CLEAR; URINE COLOR YELLOW; URINE GLUCOSE-RANDOM NEGATIVE (Negative); URINE KETONES NEGATIVE (Negative); URINE LEUKOCYTES-REFLEX NEGATIVE (Negative); URINE NITRITE-REFLEX NEGATIVE (Negative); URINE PROTEIN NEGATIVE (Negative); URINE SPECIFIC GRAVITY <= 1.005 (1.005-1.030); URINE UROBILINOGEN 0.2 E.U./dl (0.2-1.0)
[2020-04-20 22:25] LABS: BACTERIA-REFLEX >30 Many /HPF (None Seen); SQUAMOUS 0-3 Few /LPF (0-3); URINE RBC 3-10 Few /HPF (0-2)
[2020-04-20 22:26] LABS: CASTS None Seen /LPF (None Seen); CRYSTALS None Seen /LPF (None Seen)
[2020-04-21] VITALS (12 sets, daily range): BP systolic 120–144; BP diastolic 44–70
--- NOTE | 2020-04-21 05:22 | NUR ---
PT IS ABLE TO COMMUNICATE HIS NEEDS TO STAFF EFFECTIVELY. CURRENT PAIN MEDICATION REGIMEN HAS BEEN ADEQUATE FOR CONTROLLING HIS PAIN UP TO THIS TIME. LEFT GROIN CATH SITE DRESSING IS C/D/I AT THIS TIME. PT REPORTS SOME BLOOD IN URINE; CONCERNED ABOUT INFECTION; UA SENT. POSSIBLE DISCHARGE LATER TODAY.
[2020-04-21 05:56] LABS: HEMATOCRIT 40.2 % (42.0-52.0); HEMOGLOBIN 13.6 gm/dL (14.0-18.0); MCH 30.8 pg (26.0-34.0); MCHC 33.8 g/dL (28.0-37.0); MCV 91.1 fL (80.0-100.0); MPV 10.3 fl. (7.2-11.1); RBC 4.41 mil/uL (4.50-6.00); RDW-CV 15.1 % (10.5-14.5); WBC 14.3 thou/uL (4.0-11.0)
[2020-04-21 06:16] LABS: CALCIUM 8.6 mg/dL (8.5-10.1); CREATININE 1.5 mg/dL (0.6-1.3); POTASSIUM 5.3 mmol/L (3.5-5.1)
--- NOTE | 2020-04-21 07:58 | CON ---
[address] [address] CONSULTATION Name: ALEJANDRO FISHER SR Room: [place] [address] ADM IN .R.#: [id number] Admission: 04/20/20 Attend Phys: Josiah Linda MD Discharge: Date of : 44 Report #: [id number] THIS REPORT FOR: //name// cc: Aaron Marmolejo MD, Thomas MD THIS REPORT FOR: //name// CC: Josiah Marmolejo CARDIOLOGY CONSULTATION HISTORY OF PRESENT ILLNESS: I was asked by Dr. Linda and Dr. Mazariegos to see this 79-year-old white male in Cardiology consultation for evaluation and treatment of chest pain. This man has a long history of coronary artery disease. He has had previous stents and previous bypass graft surgery and had multiple stents done here in December or January of 2019. He has not seen anyone in our practice since he saw our nurse practitioner, Anya Young, on 03/22/2019. He had been followed by Dr. Light. He had the new onset of angina 2 or 3 days ago. He has known severe multivessel disease that is at least in December or January of 2019, had nothing left to intervene on that is there were things that could not be intervened on. He began having the chest discomfort and when he has exertional pain, it is a pressure in the chest. It is a 5 or 6 on a scale of 10. It lasts 5 minutes or so and goes away when he rests. He gets it 3 or 4 times a day. It is definitely worse with activity and relieved by rest. He says it occasionally occurs at rest. There is associated shortness of breath, but no other associated symptoms. There is no radiation of the discomfort. He does get dyspnea on exertion, but he does not have shortness of breath at rest, orthopnea, PND or edema. He has not had syncope or near syncope. Coronary risk factors include hypercholesterolemia and essential hypertension. He has not been a smoker. He does not have diabetes. There is a strong family history of coronary artery disease. He does not have renal disease. He does have peripheral vascular disease with carotid stenosis. He has not had a stroke or TIA. He does get pain in his legs when he walks; however, there are no open sores or ulcers as far as he knows. PAST MEDICAL HISTORY: Essentially as described above and includes the bypass graft surgery and stents. ALLERGIES: HE IS ALLERGIC TO VERSED. HOME MEDICATIONS: Aspirin 81 mg daily, atorvastatin 20 mg at bedtime, Dulcolax p.r.n., Plavix 75 mg daily, p.r.n. Lorcet, hydroxyzine 25 mg p.r.n., metoprolol tartrate 100 mg once a day, quinapril 40 mg daily and tramadol 50 mg p.r.n. REVIEW OF SYSTEMS: Positive for an unexplained fever apparently cough, emphysema, chest discomfort, shortness of breath with exercise, [place] [address] CONSULTATION Name: ALEJANDRO FISHER SR Room: [address] IN [facility]#: [id number] Admission: 04/20/20 Attend Phys: Josiah Linda MD Discharge: Date of : 44 Report #: [id number] of breath in the past. MEDICAL ALLERGIES, CONTRAST DYE ALLERGY. Wears glasses, loss of vision, decreased hearing and wears dentures. Otherwise, his review of systems is negative for some 35 different complaints in 14 different system categories. Please see review of system form for details and negatives in review of system. SOCIAL HISTORY: He is , does not smoke, drink or use illegal drugs. FAMILY HISTORY: His father and 2 brothers of heart attacks. PHYSICAL EXAMINATION: GENERAL: He presents as a well-developed, well-nourished white male in no acute distress. VITAL SIGNS: His pulse was 62, blood pressure is 148/63, respirations 16 and regular, temperature is 97.5. HEENT: His head was atraumatic. Eyes are clear. NECK: Supple. There is no jugular venous distention or hepatojugular reflux. Thyroid is not enlarged. There is no adenopathy. SKIN: Warm and dry. Mucous membranes are moist. LUNGS: Clear to auscultation and percussion. HEART: Revealed normal first and second heart sound. There is soft S4. There is no S3. There are no murmurs, rubs, thrills, heaves or gallops. PMI is nondisplaced. ABDOMEN: Soft, flat and nontender. No palpable masses, no organomegaly. EXTREMITIES: Reveal no cyanosis, clubbing or edema. NEUROLOGIC: The patient mentated normally, talked normally, moved all extremities normally. LABORATORY DATA: His chest x-ray showed minimal bibasilar and left mid lung field non-consolidative opacities likely scarring versus possible infiltration or atelectasis. There was otherwise no acute process seen. Troponins were negative x3 and his NT-proBNP was 546. His EKG shows normal sinus rhythm. There are some atrial premature beats and there are minor nonspecific T abnormalities, especially in the inferior and in the lateral chest leads. IMPRESSION: 1. New onset angina. 2. Coronary artery disease. 3. Status post coronary artery bypass graft surgery. 4. Essential hypertension. 5. Status post coronary stents. 6. Peripheral vascular disease. 7. Carotid stenosis. 8. Hypercholesterolemia. RECOMMENDATION: He should have cardiac catheterization and coronary angiography [address] [place] [address] CONSULTATION Name: ALEJANDRO FISHER SR Room: [address] IN [facility]#: [id number] Admission: 04/20/20 Attend Phys: Josiah Linda MD Discharge: Date of : 44 Report #: [id number] and an echo. Thank you very much for asking me to see the patient. If there are any questions, please feel free to contact me. <ELECTRONICALLY SIGNED> By: Clay Thacker MD, [facility] 04/21/20 0758 1032 1123F. Nj Thacker MD, [facility] /nt
--- NOTE | 2020-04-21 08:00 | NUR ---
ASSUMED CARE OF PATIENT THIS MORNING FROM NIGHT NURSE. PT HAS CO OF CHEST PAIN, WELL CONTROLLED WITH IV MORPHINE. PT WAS EDUCATED ON POC AND DISEASE PROCESS. FALL SAFETY EDUCATION GIVEN, BED IN LOWEST POSITION AND CALL LIGHT IN REACH.
[2020-04-21] MEDS ORDERED: LEVAQUIN 750 M750 MG PO (09:17)
--- NOTE | 2020-04-21 09:52 | EKG ---
[place] [address] ELECTROCARDIOGRAM REPORT Name: ALEJANDRO FISHER SR Room: [place] [address] ADM IN .R.#: [id number] Admission: 04/20/20 Attend Phys: Josiah Linda, Discharge: Date of : 44 Date of Service: 04/21/20 0534 Report #: [id number] THIS REPORT FOR: //name// [facility] Test Date: 2020-04-21 Test Time: 05:34:48 Pat Name: ALEJANDRO FISHER Department: Room: [place] [address] Gender: M Billing Machine Operator: [facility] : 1940 Requested By: Tato Menchaca Order Number: [id number] Fox MD: Trav Light Measurements Intervals [place] Rate: 55 P: 47 DE: 176 QRS: 18 QRSD: 92 T: 7 QT: 451 QTc: 432 Interpretive Statements Sinus rhythm Consider left ventricular hypertrophy Compared to ECG 04/20/2020 13:09:13 ST (T wave) deviation no longer present Myocardial infarct finding no longer present Electronically Signed On 04-21-2020 9:51:56 CDT by Trav Light [email or web address] <ELECTRONICALLY SIGNED> By: Trav Light MD, FAC 04/21/20 0951 0534 0534 Trav Light MD, [facility] /EPI
--- NOTE | 2020-04-21 16:11 | NUR ---
Pt to dc home with spouse and children support when ready to dc. Pt will be referred to OP cardiac rehab at dc.
[2020-04-22 00:38] VITALS: BP 113/77
[2020-04-22 04:26] VITALS: BP 113/51
[2020-04-22 05:30] LABS: URINE BILIRUBIN NEGATIVE (Negative); URINE BLOOD TRACE (Negative); URINE CLARITY CLEAR; URINE COLOR YELLOW; URINE GLUCOSE-RANDOM NEGATIVE (Negative); URINE KETONES NEGATIVE (Negative); URINE LEUKOCYTES-REFLEX NEGATIVE (Negative); URINE NITRITE-REFLEX NEGATIVE (Negative); URINE PROTEIN NEGATIVE (Negative); URINE UROBILINOGEN 0.2 E.U./dl (0.2-1.0)
--- NOTE | 2020-04-22 05:42 | NUR ---
ASSUMED PT CARE AT APPROX 1930. PT IS AWAKE AND ORIENTED X4. PT IS TRACING SR/SB ON THE TEACHING YOUNG.POST CARDIAC CATH SITE ON THE RIGHT GROIN IS DRY AND INTACT,HEMATOMA NOTED, BUT NO CHANGES IN SIZE NOTED. PT DENIES PAIN ON THE GROIN. PT C/O BACK PAIN THAT IS CHRONIC, PAIN MEDICINE GIVEN PER MAR. NO ACUTE CHANGES NOTED THROUGHOUT THIS SHIFT. CALL LIGHT WITHIN REACH. HOURLY ROUNDING DONE FOR PT SAFETY.
[2020-04-22 06:59] LABS: HEMATOCRIT 38.2 % (42.0-52.0); HEMOGLOBIN 12.8 gm/dL (14.0-18.0); MCH 30.8 pg (26.0-34.0); MCHC 33.6 g/dL (28.0-37.0); MCV 91.7 fL (80.0-100.0); NUCLEATED RBCS 0 /100WBC; PLATELET COUNT* 167 thou/uL (150-400); RBC 4.17 mil/uL (4.50-6.00); RDW-CV 15.7 % (10.5-14.5); WBC 13.8 thou/uL (4.0-11.0)
[2020-04-22 07:19] LABS: CALCIUM 8.2 mg/dL (8.5-10.1); CREATININE 1.8 mg/dL (0.6-1.3); POTASSIUM 5.2 mmol/L (3.5-5.1)
[2020-04-22 07:45] VITALS: BP 138/57
[2020-04-22 07:46] LABS: ABSOLUTE LYMPHOCYTES 0.6 thou/uL (0.8-5.3); ABSOLUTE NEUTROPHILS 12.3 thou/uL (1.6-8.1); PLATELET ESTIMATE ADEQUATE
--- NOTE | 2020-04-22 08:18 | NUR ---
ASSUMED CARE OF PT AT 0730. PT RESTING IN BED WAITING FOR BREAKFAST. A&0X4, DENIES ANY PAIN OR SHORTNESS OF BREATH AT THIS TIME. PT GIVEN PAIN MED BY NOC SHIFT WITH RELIEF. TRACING SB ON THE COMPLIANCE EXAMINER- UPPER 50'S. ON RA SAT 100%. PT UP AD KEENAN IN ROOM. LEFT GROIN CATH SITE IS C/D/I WITH NO HEMATOMA NOTED- SLIGHT BRUISING NOTED. PT STATES HE HASNT HAD A BOWEL MOVEMENT IN 3 DAYS. REFUSING LAXATIVE, STATING WILL TAKE WHEN I GET HOME AND HAVE LUCK. PT GOAL FOR TODAY IS DISCHARGE PLANNING TO HOME AND PAIN MGMT. AM ASSESSMENT CHARTED. MEDICATIONS PER NOV. PT REPOSITIONS SELF. HOURLY ROUNDING OBSERVED. BED IN LOW POSITION. CALL LIGHT WITHIN REACH. WILL CONTINUE PLAN OF CARE.
[2020-04-22] MEDS ORDERED: EFFIENT10 MG PO (09:00)
[2020-04-22] MEDS ORDERED: TOPROL XL50 MG PO (09:00)
[2020-04-22] MEDS ORDERED: ASPIR 8181 MG PO (09:00)
[2020-04-22 10:56] VITALS: BP 138/57
[2020-04-22] MEDS ORDERED: NITROSTAT0.4 M1 SUBLING (11:07)
[2020-04-22 12:53] VITALS: BP 151/59
[2020-04-22] MEDS ORDERED: LIPITOR 40 MG T40 M1 PO (15:19)
[2020-04-22 16:18] VITALS: BP 138/57
--- NOTE | 2020-04-22 17:30 | NUR ---
DISCHARGE ORDERS RECEIVED. DISCHARGE INSTRUCTIONS, CARE NOTES, SCRIPTS AND FOLLOW UP APPTS GIVEN TO PT. PT COMMUNICATES UNDERSTANDING OF DISCHARGE TEACHING. IV AND CAB STARTER REMOVED. PT DISCHARGED WITH ALL BELONGINGS AND PAPERWORK VIA WHEELCHAIR WITH NURSING STAFF TO SONS OWN PERSONAL VEHICLE. PT SEEN BY CARDIAC REHAB PRIOR TO DC.
--- NOTE | 2020-04-23 13:54 | CARD ---
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, Charlie Jorge Jig Hand, Patricia Lawrence RN Architect Intern, Fabián Shi Scrub, Zarina Nathan RTR Monitor Procedures Performed Art Access - L femoral artery, Coronaries Angiography and Bypass Grafts CORCABG, ELSIE Place w/wo Plasty Single LAD , Hemostasis w/ Angioseal Indication Non-STEMI Risk Factors Hypercholesterolemia, Hypertension Previous Procedures/Diagnoses Previous CABGPrevious PCI, Previous CA Admission/Lab Medications/Medications given during procedure Solumedrol IV 125 mg, Benadryl IV 50 mg, Morphine IV 4 mg, Hydralazine (Apresoline) IV 10 mg, Nitroglycerin SL 0.4 mg, Angiomax IV bolus 15 ml, Angiomax Drip IV 20.2 ml per hr, Effient PO 60 mg Procedure Narrative The patient was brought urgently to the Cardiac Catheterization Laboratory and was prepped and draped in a sterile manner. The left femoral was infiltrated with 2% Lidocaine subcutaneous anesthesia. A 6F [place] sheath was inserted into the left femoral artery. Coronary angiography was performed using [place] [address] CARDIAC CATH REPORT Name: ALEJANDRO FISHER SR Room: [address]#: [id number] Admission: 04/20/20 Attend Phys: Josiah Linda MD Discharge: 04/22/20 Date of : 44 Report #: [id number] catheters. The left coronary system was accessed and visualized with a 6F JL4 catheter. Pre-demployment femoral angiogram was performed . Closure device was deployed with a 6 Fr Angioseal STS. The patient tolerated the procedure well and there were no complications associated with the procedure. There was no hematoma. The left femoral groin was infiltrated with 2% Nesacaine. The FISHER graft was visualized with a 6F IM catheter. Intraoperative Conscious Sedation Sedation start time: 14:18 Case end Time: 15:33 Morphine 4 mg given as sedation. Fluoro Time: 21.7 minutes Dose: DAP [id number] cGycm2 1646 mGy Contrast Type and Amount: Visipaque 160 ml Diagnostic Cath Left Main The left main coronary artery is free of significant disease and bifurcates into a left anterior descending and circumflex coronary artery. LAD The LAD is occluded at the ostium. The distal vessel is filled with a FISHER graft. There is subtotal occlusion distal to a recently placed distal LAD stent. Circumflex Circumflex coronary artery is diffusely moderately plaqued without hemodynamically significant stenoses. OM1 A small first obtuse marginal branch is diffusely moderately plaqued without hemodynamically significant stenoses. OM2 A large branch second obtuse marginal branch is mildly plaqued without hemodynamically significant stenoses. Left Ventriculography Left Ventriculography was not performed. Hemodynamics The aortic pressure is 191/83 mmHg with a mean of 109 mmHg. PCI Technique Lesion Anticoagulation was achieved with Angiomax. Patient was preloaded with Angiomax IV 15 ml. Percutaneous coronary intervention was performed on the distal left anterior descending artery segment. The lesion stenosis prior to intervention was 99% with CAMMIE 0-1 flow. A 6FR IM SH 100C Guide Catheter was used to engage the FISHER ostium. A BMW 190cm Interventional Guidewire was used to [place] [address] CARDIAC CATH REPORT Name: ALEJANDRO FISHER SR Room: [address]#: [id number] Admission: 04/20/20 Attend Phys: Josiah Linda MD Discharge: 04/22/20 Date of : 44 Report #: [id number] BALLOON DILATION A Balloon catheter Mini Trek RX 1.5 X 12 was inserted and inflated up to 14.00atm for 33seconds. Additional Inflation: 14.00atm for 20seconds. Additional Inflation: 17.00atm for 11seconds. A balloon catheter NC Trek RX 2.0 x 12 was inserted and inflated up to 14 michael for 11 seconds. Additional Inflations: 15 michael for 9 seconds; 16 michael for 9 seconds. STENT DEPLOYMENT A drug-eluting stent Shaq RX Stent 2.0X15mm was inserted and inflated up to 7.00atm for 16seconds. Additional Inflation: 7.00atm for 12seconds. Final angiography reveals 0 % stenosis with CAMMIE 3 flow. COMMENTS ProwaterFlex 180cm wire used as a Tk wire. Conclusion 1. Subtotal occlusion of the apical LAD beyond recently placed stent.( filled via a FISHER graft ) 2. Chronically occluded ostial LAD. 3. successful PCI with deployment of a drug eluting stent at the site of subtotal distal LAD occlusion with 0% residual and TIMI3 flow to the apical LAD. Recommendations Cardiac Risk Reduction Program Aggressive Medical Therapy 1. Continue aggressive risk factor modification. 2. Percutaneous coronary intervention to apical LAD. Medications Administered Aspirin (any) Prasugrel Diagnostic Cath Approved by: Trav Light MD Date/Time: 04/23/2020 13:51:40 <ELECTRONICALLY SIGNED> By: Charlie Jorge MD, [facility] 04/23/20 1353 1353 [id number] Jorge MD, FAC /INF
== END 2020-04-22 17:30 | disposition home or self-care (01) | DRG 246 ==
LOC: M.ERS 19:59 → M.2W 22:33 → M.TBA-ER 22:33 → M.2W 04-19 00:49
PROVIDERS: Emergency Medicine; Internal Medicine; Internal Medicine Cardiovascular Disease; ADMIT Internal Medicine; ATTEND Internal Medicine
DX: T82.855A Stenosis of coronary artery stent, initial encounter (principal); I50.31 Acute diastolic (congestive) heart failure; I73.9 Peripheral vascular disease, unspecified; E78.5 Hyperlipidemia, unspecified; I35.0 Nonrheumatic aortic (valve) stenosis; I25.119 Atherosclerotic heart disease of native coronary artery with unspecified angina pectoris; M54.9 Dorsalgia, unspecified; G89.29 Other chronic pain; I65.23 Occlusion and stenosis of bilateral carotid arteries; R31.0 Gross hematuria; I11.0 Hypertensive heart disease with heart failure; Y83.8 Other surgical procedures as the cause of abnormal reaction of the patient, or of later complication, without mention of misadventure at the time of the procedure; E78.00 Pure hypercholesterolemia, unspecified; Z79.899 Other long term (current) drug therapy; Z82.49 Family history of ischemic heart disease and other diseases of the circulatory system; Z95.5 Presence of coronary angioplasty implant and graft; Z95.1 Presence of aortocoronary bypass graft; Z88.8 Allergy status to other drugs, medicaments and biological substances; Z87.891 Personal history of nicotine dependence; Z85.51 Personal history of malignant neoplasm of bladder; Y92.89 Other specified places as the place of occurrence of the external cause; I25.82 Chronic total occlusion of coronary artery

== ENCOUNTER → 2020-04-28 | Outpatient (CLI) | payer OTHER ==
[~2020-04-28] MED LIST changes: +DULCOLAX STOOL100 M1 PO; +DULCOLAX5 MG PO; +EFFIENT10 MG PO; +LEVAQUIN 750 M750 MG PO; +LIPITOR 40 MG T40 M1 PO; +LORCET 5-325 M1 EACH PO; +NITROSTAT0.4 M1 SUBLING; +TOPROL XL50 MG PO; +VISTARIL 25 MG25 M1 PO
[2020-04-28 11:57] LABS: HEMATOCRIT 38.8 % (42.0-52.0); HEMOGLOBIN 13.5 gm/dL (14.0-18.0); MCH 31.6 pg (26.0-34.0); MCHC 34.9 g/dL (28.0-37.0); MCV 90.5 fL (80.0-100.0); MPV 9.5 fl. (7.2-11.1); RBC 4.29 mil/uL (4.50-6.00); RDW-CV 14.8 % (10.5-14.5); WBC 10.2 thou/uL (4.0-11.0)
[2020-04-28 12:12] LABS: CALCIUM 8.1 mg/dL (8.5-10.1); CREATININE 1.7 mg/dL (0.6-1.3); POTASSIUM 4.4 mmol/L (3.5-5.1); TOTAL BILIRUBIN 0.8 mg/dL (<0.1-1.0); TOTAL PROTEIN 7.4 g/dL (6.4-8.2)
== END ==
LOC: M.LAB 11:35
PROVIDERS: ATTEND Registered Nurse
DX: I25.5 Ischemic cardiomyopathy (principal)

== ENCOUNTER 2021-07-15 20:15 | Emergency (ER) | payer OTHER ==
[~2021-07-15] VITALS: Ht 182.9 cm; Wt 99.8 kg
== END 2021-07-15 20:20 ==
LOC: M.ERS 20:15
DX: I46.9 Cardiac arrest, cause unspecified (principal); Z79.899 Other long term (current) drug therapy; Z91.041 Radiographic dye allergy status; Z88.1 Allergy status to other antibiotic agents; Z88.8 Allergy status to other drugs, medicaments and biological substances